=== PATIENT | female | born 1970 | race Caucasian/White ===

== ENCOUNTER → 2025-06-14 | Outpatient (CLI) | payer OTHER, SELFPAY ==
--- NOTE | 2025-06-14 12:45 | ECHOL_ITS ---
Reason For Study Reason For Study: CHEST PAIN, PERICARDIAL EFFUSION Procedure This was a 2D Doppler, Color Flow transthoracic echocardiogram. Exam performed in department. Left Ventricle Normal LV size. The left ventricular ejection fraction is 60 %. No regional wall motion abnormalities noted. Right Ventricle Normal RV size. Normal systolic function. Atria The left atrium is mildly enlarged. The right atrium is mildly enlarged. Mitral Valve Normal mitral valve. Tricuspid Valve Normal tricuspid valve. Aortic Valve Trisinus/trileaflet aortic valve. Pulmonic Valve Normal pulmonic valve. Great Vessels Normal aortic root. The pulmonary artery is normal size. Inferior vena cava collapse with respiration. Pericardium/Pleural Moderate (1.0-2.0 cm) pericardial effusion. There are no echocardiographic indications of cardiac tamponade. Compared to the previous report the amount of confusion is less. MMode/2D Measurements & Calculations LVIDd: 4.3 cm IVSd: 0.84 cm Ao root diam: 3.3 cm LVIDs: 2.8 cm LVPWd: 0.90 cm FS: 35.7 % LAV(MOD-bp): 62.0 ml LVAd ap4: 30.2 cm2 SV(MOD-sp4): 57.0 ml LAV(MOD-bp) Indexed: 34.3 ml/m2 LVLd ap4: 7.7 cm SI(MOD-sp4): 31.5 ml/m2 LAV(MOD-sp2): 61.9 ml EDV(MOD-sp4): 95.4 ml LAV(MOD-sp4): 61.1 ml EDV(sp4-el): 99.8 ml LVAs ap4: 17.4 cm2 LVLs ap4: 6.7 cm ESV(MOD-sp4): 38.5 ml ESV(sp4-el): 38.6 ml EF(MOD-sp4): 59.7 % EF(sp4-el): 61.3 % SV(sp4-el): 61.2 ml LA A4 area: 21.5 cm2 LA dimension(2D): 3.6 cm RA A4 area: 22.4 cm2 ECHO/Echo, Limited Study Interpretation Summary Normal LV size. The left ventricular ejection fraction is 60 %. Moderate (1.0-2.0 cm) pericardial effusion. There are no echocardiographic indications of cardiac tamponade. Compared to the previous report the amount of confusion is less. Ordering Physician: Dudley Baldwin Referring Physician: Jonathan Dowell Performed By: Anitra Dyer RDCS, RVT
== END | disposition home or self-care (01) ==
LOC: CVS 12:43
PROVIDERS: PCP Family Medicine; Referring Provider Internal Medicine Cardiovascular Disease; Visit Provider Internal Medicine Cardiovascular Disease
DX: R07.9 Chest pain, unspecified (principal); R00.2 Palpitations; I31.39 Other pericardial effusion (noninflammatory)
CPT/HCPCS: 93308